=== PATIENT | female | born 1990 | race Caucasian/White ===

== ENCOUNTER 2024-01-18 16:26 | Emergency (ER) | payer OTHER, SELFPAY ==
[2024-01-18 16:54] VITALS: BP 112/66
[2024-01-18 17:19] LABS: % Basophils 0.9 % (0-2); % Eosinophils 2.2 % (0-6); % Immature Granulocytes 0.1 % (0-0.5); % Lymphocytes 35.1 % (20.5-51.1); % Monocytes 6.8 % (1.7-9.3); % Neutrophils 54.9 % (42.2-75.2); Absolute Basophils 0.1 10^3/uL (0-0.2); Absolute Eosinophils 0.2 10^3/uL (0-0.7); Absolute Lymphocytes 2.4 10^3/uL (1.2-3.4); Absolute Monocytes 0.5 10^3/uL (0.1-0.6); Absolute Neutrophils 3.7 10^3/uL (1.4-6.5); Hematocrit 39.7 % (37.0-47.0); Hemoglobin 14.2 g/dL (12.0-16.0); Mean Corp Hgb Conc. 35.8 g/dL (33.0-37.0); Mean Corpuscular Hgb 30.9 pg (27.0-31.0); Mean Corpuscular Volume 86.3 fL (81.0-99.0); Mean Platelet Volume 10.6 fL (7.4-10.4); Nucleated Red Blood Cells % 0 %; Platelet Count 221 10^3/uL (130-400); Red Cell Dist. Width 11.8 % (11.5-14.5); White Blood Cell Count 6.8 10^3/uL (4.8-10.8)
[2024-01-18 17:23] LABS: Urine Albumin Negative (Neg - Trace); Urine Bilirubin Negative (Negative); Urine Character Clear (Clear); Urine Color Yellow; Urine Glucose Negative (Negative); Urine Ketone 1+ (Negative); Urine Leukocyte Trace (Negative); Urine Nitrite Negative (Negative); Urine Occult Blood Negative (Negative); Urine Urobilinogen Negative (Neg - 1+)
[2024-01-18 17:35] LABS: HCG, Serum Qualitative Screen Negative
[2024-01-18 17:39] LABS: ALT (SGPT) 14 U/L (0-35); AST (SGOT) 22 U/L (14-36); Albumin 4.9 g/dl (3.5-5.0); Alkaline Phosphatase 50 U/L (38-126); Blood Urea Nitrogen 7 mg/dl (7-17); Calcium 9.9 mg/dl (8.4-10.2); Carbon Dioxide 27 mmol/L (22-30); Chloride 104 mmol/L (98-107); Glucose 103 mg/dl (70-99); Sodium 143 mmol/L (135-145); Total Bilirubin 0.9 mg/dl (0.2-1.3); Total Protein 7.4 g/dl (6.3-8.2); eGFR > 60.00
[2024-01-18 17:52] LABS: Urine Squamous Cell 21-25 /LPF (Few)
[2024-01-18 17:53] LABS: Urine Bacteria Few (Negative); Urine White Cell 16-20 /HPF (0-5)
[2024-01-18 18:05] LABS: Lipase 83 U/L (23-300)
--- NOTE | 2024-01-18 18:52 | ED.GENMED ---
History of Present Illness
General
Chief Complaint: Abdominal Pain
Source: patient
Exam Limitations: none
Time Seen by Provider: 01/18/24 18:18
Nursing documentation reviewed up to this point in time: agreed with
History of Present Illness
History of Present Illness:
33-year-old female presenting to the emergency department today with concerns of intermittent crampy abdominal pain to the upper abdomen over the past 3 days associated nausea no vomiting decreased appetite also some constipation. Last bowel
movement was 2 days ago. She does have chronic constipation. Noted some mild discomfort rating to her chest today as well. Denies any fever, shortness of breath.
Review of Systems
Review of Systems
Allergies reviewed?: Yes
All Other Systems: ROS reviewed and negative except as documented in HPI and ROS
Phy Exam
Physical Exam
Physical Exam:
GENERAL: Alert , in no apparent distress
EYE: pupils equal and reactive
NECK: Supple, no significant adenopathy.
ENT: o/p clr, mmm.
CARDIAC: Regular rate and rhythm .
LUNGS: Clear breath sounds bilaterally, no acute respiratory distress, no wheezes/rales/rhonchi
ABDOMEN: Soft, without focal tenderness, no r/g, no cvat
NEUROLOGICAL: Alert and oriented, no focal neuro deficits
SKIN: Warm and dry, skin intact.
MUSCULOSKELETAL: No edema, well perfused.
PSYCH: Normal and appropriate interaction.
Course
Orders/Labs/Results
Orders:
Orders
01/18/24 16:28
Electrocardiogram (*1) Urgent
Reason for Study: Chest Pain
01/18/24 16:29
EKG- Treatment ONCE
01/18/24 17:01
Test Result ONCE
01/18/24 17:12
Complete Blood Count/With Diff Urgent
Comprehensive Metabolic Panel Urgent
HCG, Serum Qualitative Screen Urgent
Lipase Urgent
Urinalysis Reflex To Culture Urgent
Date Specimen was Collected: 01/18/24
Time Specimen was Collected: 17:01
Urine Microscopic Reflex Cult Urgent
Urine Culture Urgent
JEFFERY Source: U
Specimen Description:
Date Specimen was Collected: 01/18/24
Time Specimen was Collected: 17:01
Abnormal Lab Results
01/18/24
17:12
MPV 10.6 H fL
(7.4-10.4)
Glucose 103 H mg/dl
(70-99)
Urine Ketones 1+ A
(Negative)
Leukocyte Esterase Rfl Trace A
(Negative)
Urine WBC (Reflex) 16-20 A /HPF
(0-5)
Urine Bacteria (Reflex) Few A
(Negative)
01/18/24 17:12
01/18/24 17:12
Vital Signs
Initial and Last Documented VS:
Initial Vital Signs
Temp Pulse Resp BP Pulse Ox
98.2 F 68 18 112/66 99
01/18/24 16:54 01/18/24 16:54 01/18/24 16:54 01/18/24 16:54 01/18/24 16:54
Last Documented Vital Signs
Temp Pulse Resp BP Pulse Ox
98.2 F 68 18 112/66 99
01/18/24 16:54 01/18/24 16:54 01/18/24 16:54 01/18/24 16:54 01/18/24 16:54
MDM/Problems Addressed
MDM/Problems Addressed:
33-year-old female presenting to the emergency department today with concerns of upper abdominal pain over the past 3 days described as intermittent and spasms associated nausea no vomiting has had decreased appetite has had some constipation. Here
no pain on my assessment no abdominal pain to palpation vital signs are normal. Labs unremarkable lipase normal normal liver function tests and bilirubin levels EKG is normal. Symptoms do not seem to be consistent with any life-threatening
etiology or surgical emergency advised for close outpatient follow-up. Return precautions given.
*Critical Care Note
Total Time (30-74mins, 75-104mins- exclusive of procedures): Not Applicable
ED Attending Note
-
Portions of this chart may have been created with voice recognition software.� Occasional wrong word or��sound alike� substitutions may have occurred due to the inherent limitations of voice recognition software.
Discharge Plan
Departure
Patient Disposition: Home (Routine Discharge)
Date of Disposition: 01/18/24
Time of Disposition: 18:52
Patient with high blood pressure during this ER visit?: No
Condition: Good
Covid-19: Not Applicable
Discharge Problem:
Acute upper abdominal pain
Instructions: Abdominal Pain
Prescriptions:
New
famotidine 20 mg tablet
20 mg PO BID 7 Days Qty: 14 0RF
Referrals:
[facility] [Provider Group] - Follow up in 5-7 days
Activity Restrictions/Additional Instructions:
You came to the emergency department today with concerns of upper abdominal discomfort. Here your reassuring assessment. Please take the prescribed medication and follow-up closely with the primary care doctor within 1 week. Return to the
emergency department any worsening, new or concerning symptoms.
Interventions
Interventions:
*Risk Screen - Suicide Last Done: 01/18/24 16:54
Discharge Date and Time
Print Language: PORTUGUESE
[2024-01-18 19:08] VITALS: BP 107/59
== END 2024-01-18 19:15 | disposition home or self-care (01) ==
LOC: EMR 16:26
PROVIDERS: Emergency Medicine; EMERGENCY PHYSICIAN Student in an Organized Health Care Education/Training Program
DX: R10.10 Upper abdominal pain, unspecified (principal)
CPT/HCPCS: 99284; 80053; 81003; 81015; 83690; 84703; 85025; 87086; 93005